=== PATIENT | male | born 1960 | race Caucasian/White ===

== ENCOUNTER → 2016-11-28 06:19 | Day surgery (SDC) | payer BC ==
[~2016-11-28 06:19] MED LIST: Acetaminophen TAB* 325 MG PO PRN; Buffered Lidocaine 1% SYRIN* 3 ML/SYR SYRINGE INTRADERM ONE; Cyclopentolate 1% OPTH.SOL* 2 ML BTL ONE; Flurbiprofen 0.03% OPTH.SOL* 2.5 ML BTL ONE; Lidocaine 1% MPF* 2 ML VIAL ONE; Lidocaine 2% EPI 1:200000 MPF* 20 ML VIAL ONE; Midazolam* 1 MG/ML 2 ML VIAL (2 MG) ONE; Midazolam* 1 MG/ML 5 ML VIAL (5 MG) ONE; Neomycin/Polymy/Dex OPTH.SUSP* MAXITROL 0.1% 5 ML ONE; Phenylephrine 2.5% OPTH.SOL* 2 ML BTL ONE; Povidone Iodine 5% OPTH* 30 ML BTL ONE; Proparacaine 0.5% OPHTH.SOL* 15 ML BTL ONE; acetaZOLAMIDE TAB* 250 MG ONE; fentaNYL* 50 MCG/ML 2 ML VIAL (100 MCG VIAL) ONE
[2016-11-28 08:27] VITALS: BP 121/74
--- NOTE | 2016-11-28 12:16 | OP ---
OPERATIVE NOTE: DATE OF OPERATION: 11/28/16 DATE OF : 60 SURGEON: Saqib Arreaga MD PREOPERATIVE DIAGNOSIS: Cataract, left eye. POSTOPERATIVE DIAGNOSIS: Cataract, left eye. OPERATIVE PROCEDURE: Phacoemulsification, left eye with IOL. PROCEDURE: The patient was brought to the operating room after being given 1/2% Alcaine with epinep hrine drops in the preoperative area. The eye was prepped and draped in the usual sterile fashion. Sterile drape and eyelid speculum were placed. Again, topical 1/2% Alcaine with epinephrine was gi ayaan. A paracentesis incision was made at the 3 o'clock position with the No.75 blade. Clear cornea incision 2.2 x 2.2-mm was created at the 6 o'clock position starting at the anterior limbus using t he 2.2-mm keratome. The anterior chamber was irrigated with 0.4 mL of 1% non-preservative intracame ral lidocaine and filled with DisCoVisc. A capsulorrhexis was completed using the cystotome and the Utrata forceps. Hydrodissection was performed with balanced salt solution. The lens nucleus was re moved with the Phacoemulsification handpiece without incident. Cortex was removed with the irrigati on-aspiration handpiece. The capsular bag was re-inflated using DisCoVisc and an [id number] 14.5 implan t was inserted with the shooter and oriented to the 81-degree meridian. Horizontal reference barry were made with the patient in seated position in the preoperative area. The lens was rotated in ref erence to those. Irrigation-aspiration handpiece was used to remove all residual DisCoVisc. The ey e was refilled with balanced salt solution and the wound checked and found to be watertight. Topica l Maxitrol drops were given. [id number]/[facility] #: [id number]
== END | disposition home or self-care (01) ==
LOC: OREAST 06:19
PROVIDERS: ATTEND Specialist
DX: H25.812 Combined forms of age-related cataract, left eye (principal); I10 Essential (primary) hypertension; R00.2 Palpitations
CPT/HCPCS: J2250; J3010; V2787

== ENCOUNTER 2018-11-09 21:27 | Emergency (ER) | payer BC ==
--- OUTSIDE RECORDS SUMMARY | 2018-11-09 21:34 | XMS REPORT | Continuity of Care Document ---
:1960 External Reference #:[id number] Author Name Jesús Del Castillo M.D. Address [address] [facility] [place] [address] Care Team Providers Name Role Phone Jesús Del Castillo MD Care Team Information Strategic Sourcing Specialist Unavailable Jesús Del Castillo MD Primary Care Physician Unavailable Payers Date Identification Numbers Payment Provider Subscriber Effective: 2011 Policy Number: [id number] [facility] Clarke Soares PayID: [id number] [address] [place] [id number] Advance Directives Description No Information Available Problems Date Description Provider Status Onset: 08/24/2011 Benign essential hypertension Jesús Del Castillo M.D. Active Onset: 08/24/2011 Hyperlipidemia Jesús Del Castillo M.D. Active Onset: 08/24/2011 Benign prostatic hypertrophy Jesús Del Castillo M.D. Active without outflow obstruction Onset: 08/24/2011 Asthma without status asthmaticus Jesús Del Castillo M.D. Active Onset: 11/23/2016 Cataract Jesús Del Castillo M.D. Active Onset: 08/24/2011 Symptom of skin and integumentary Jesús Del Castillo M.D. Inactive tissue Inactive: 11/27/2016 Onset: 05/22/2016 Essential hypertension Jesús Del Castillo M.D. Inactive Inactive: 11/27/2016 Onset: 05/22/2016 Adult health examination Jessú Del Castillo M.D. Inactive Inactive: 11/27/2016 Onset: 04/19/2014 Tinnitus Saqib Gomez M.D. Inactive Inactive: 10/25/2018 Onset: 10/24/2018 Adult health examination Jesús Del Castillo M.D. Inactive Inactive: 10/25/2018 Onset: 10/24/2018 Mixed hyperlipidemia Jesús Del Castillo M.D. Inactive Inactive: 10/25/2018 Family History Date Family Member(s) Observation Comments Father Hypertension Onset: (age 82 Father Aortic valve replaced CABG Years) Onset: (age 38 First Brother Chest Pain had a normal cardiac Years) cath Onset: (age 65 Paternal Grandfather [place] Years) Social History Type Date Description Comments Sex Unknown Marital Status Patient is Occupation Employee [employer] Tobacco Use Start: Unknown Never Smoked Cigarettes ETOH Use Rarely consumes alcohol Tobacco Use Start: Unknown Patient has never smoked Allergies, Adverse Reactions, Alerts Date Description Reaction Status Severity Comments 08/24/2011 NKDA Active 05/22/2010 cantaloupe Active 05/22/2010 Apples Active 05/22/2010 [place]/Yellow Fruits & Veggies Active 04/22/2015 Hay Fever Active Medications Medication Date Status Form Strength Qnty SIG Indications Ordering Provider Losartan 01/04/ Active Tablets 25mg 90tab 1 by mouth Jesús F. Potassium 2018 s every day Artem Del Castillo Proventil HFA 01/05/ Active Aerosol 108(90Bas 1unit 2 puffs every Glenys Kiki 2012 e) s 4 hours as Vines, mcg/Act needed [employer] Metoprolol 09/26/ Active Tablets 100mg 90tab Take 1 Tablet Jesús F. Succinate ER 2011 ER 24HR s By Mouth Two Shallish, Times Daily M.DNina Zocor 05/03/ Active Tablets 20mg 90tab Take 1 Tablet Jesús F. 2007 s By Mouth AT Abundio, Bedtime M.DNina Baby Aspirin 04/01/ Active Chewtabs 81mg 1 PO qd Jesús F. 2007 Artem Del Castillo Vitamin D3 / Active Capsules [id number] OTC 1 po qd Unknown 0000 Tamiflu 10/19/ Hx Capsules 75mg 10cap 1 by mouth Jesús F. 2017 - s twice a day Shallish, 01/02/ M.D. 2018 Lisinopril 09/01/ Hx Tablets 5mg 90tab Take One I10 Jesús FNina 2016 - s Tablet By Abundio, 01/04/ Mouth Once M.D. 2018 Daily Vitamin B12 11/23/ Hx Tablets 1000mcg 1 by mouth Unknown 2017 - ER ocassionally 2018 Note 08/19/ Hx 4unit typhoid oral Jesús F. 2014 - vaccine, 1 po Shallish, 05/22/ qod for 4 M.D. 2016 doses Cipro 08/19/ Hx Tablets 500mg 20tab 1 tab twice a Jesús F. 2014 - s day for 10 Shallish, 05/22/ days M.D. 2016 Azithromycin 07/16/ Hx Tablets 250mg 6tabs 2 tabs by 465.9 Kirill Knight, 2014 - mouth day #1 M.D. 11/30/ then 1 tab by 2014 mouth day#2-5 Lisinopril 05/26/ Hx Tablets 5mg 90tab Take One I10 Jesús F. 2012 - Tablet By Shallriccardo, 11/23/ Mouth Once M.D. 2016 Daily Tobramycin 05/21/ Hx Solution 0.3% 1Bott 1-2 gtts into 373.12 Renate Sulfate 2012 - le left eye q 4 Hipolito, 05/26/ hrs x 5 days Afnp-C 2013 Proventil HFA 01/05/ Hx Aerosol 108(90Bas 1unit 2 puffs q4h Jesús F. 2012 - ) s prn for Shallish, 01/05/ mcg/Act cough/ M.D. 2012 wheezing Proventil HFA 01/05/ Hx Aerosol 108(90Bas 1unit 2 puffs every Jesús F. 2012 - ) mcg/ac s 4 hours as Shallish, 12/25/ needed for M.D. 2014 cough/ wheezing Clarinex 01/12/ Hx Tablets 5mg 30tab 1 po qd Jesús F. 2010 - s Shallish, 01/14/ M.D. 2013 Proventil HFA 01/12/ Hx Aerosol 108(90Bas 1unit 2 puffs q4h Jesús F. 2010 - ) mcg/ac s prn for Shallish, 01/05/ cough/ M.D. 2013 wheezing Amoxicillin 04/13/ Hx Tablets 875mg 20tab 1 tab bid x Av A. 2009 - s 10 days Darlow, 04/23/ M.D. 2010 Physical 06/17/ Hx evaluate and Jesús F. Therapy 2007 - treat neck Shallish, 11/12/ pain ,back M.D. 2009 pain Toprol XL 12/31/ Hx Tablets 50mg 1 PO qd Jesús F. 2008 - ER 24HR Shallish, 11/12/ M.D. 2009 Zocor 07/09/ Hx Tablets 10mg 30tab 2 PO QHS Jesús F. 2006 - s Shallish, M.D. 2008 Toprol XL 04/24/ Hx Tablets 25mg 30tab 1 po qd Jesús F. 2006 - s Shallish, M.D. 2008 Toprol XL 04/24/ Hx Tablets 50mg 180ta 1 PO qd 401.1 Jesús F. 2007 - bs [facility], M.D. 2006 Lotrisone 08/31/ Hx Cream 0.05%;1 % 45gm Apply To Renate 2004 - Affected Area [facility], 09/14/ bid X 4 WKS Afnp-C 2006 Tamiflu 10/11/ Hx 75mg 10uni 1 Tablet Codi 2004 - ts Twice A Day von 02/20/ Lidia, 2004 M.D. Albuterol 01/05/ Hx 1unit 1-2 Puffs Jesús F. Inhaler 2002 - s Q4HRS [facility], M.D. 2005 Josette 05/15/ Hx 180mg 30uni 1 po qd prn Renate 2001 - ts [facility], 04/01/ Afnp-C 2008 Motrin 06/11/ Hx 600mg 40uni 1 PO tid prn Jesús F. 1997 - ts [facility], M.D. 1997 Tylenol #3 06/11/ Hx #3 30uni 1 PO Q4H prn [facility] F. 1997 [facility] Proventil 01/05/ Hx Mdi 1unit 2 puffs q4h [facility]s F. 1997 [facility] cough/ M.D. 2010 wheezing Claritin 01/05/ Hx 10mg 30uni 1 qd Ejs[facility]s F. 1997 [facility] 1998 Toprol XL / Hx Tablets 100mg 135ta 1 1/2po qd Jesús F. 0000 - ER 24HR bs [facility], Artem 2011 Vitamin B-12 / Hx Tablets 1000mcg 1 po qd Unknown 0000 - 2013 Immunizations CPT Code Status Date Vaccine Lot # [id number] Given 05/19/2018 Tdap Tetanus, W Pertussis [id number] Given 05/22/2016 Influenza Vac, Quadrivalent, Slit Virus, Im [id number] Given 06/10/2014 DO Not Use Split Influenza Virus Vaccine [id number] Given 08/08/2013 DO Not Use Split Influenza Virus Vaccine [id number] Given 06/19/2012 DO Not Use Split Influenza Virus Vaccine [id number] Given 08/24/2011 Tdap Tetanus, W Pertussis [id number] 69488 Given 05/22/2010 DO Not Use Split Influenza Virus Vaccine [id number] 94622 Given 12/12/2007 Tetanus And Diptheria Adult Preservative Free [id number] >[id number] Vital Signs Date Vital Result Comment 10/24/2018 8:03am BP Systolic 142 mmHg BP Diastolic 72 mmHg Heart Rate 60 /min Body Temperature 97.7 F Height 71 inches 5'11" Weight 210.00 lb BMI (Body Mass Index) 29.3 kg/m2 01/04/2018 9:33am BP Systolic 120 mmHg BP Diastolic 66 mmHg Heart Rate 60 /min Respiratory Rate 982 /min O2 % BldC Oximetry 16 % Height 71 inches 5'11" Weight 210.50 lb BMI (Body Mass Index) 29.4 kg/m2 08/20/2017 1:05pm BP Systolic 132 mmHg BP Diastolic 82 mmHg Heart Rate 52 /min Body Temperature 97.5 F Height 71 inches 5'11" Weight 205.12 lb BMI (Body Mass Index) 28.6 kg/m2 11/23/2016 5:00pm BP Systolic 122 mmHg BP Diastolic 70 mmHg Heart Rate 54 /min Body Temperature 97.9 F Height 70.5 inches 5'10.50" measured 05/22/16 Weight 205.38 lb BMI (Body Mass Index) 29.0 kg/m2 05/22/2016 7:59am BP Systolic 116 mmHg BP Diastolic 68 mmHg Heart Rate 56 /min Body Temperature 98.1 F Respiratory Rate 16 /min Height 70.5 inches 5'10.50" measured 05/22/16 Weight 205.00 lb BMI (Body Mass Index) 29.0 kg/m2 04/22/2015 1:11pm BP Systolic 132 mmHg BP Diastolic 80 mmHg Heart Rate 54 /min Body Temperature 97.5 F Respiratory Rate 16 /min Height 70.25 inches 5'10.25" Weight 215.12 lb BMI (Body Mass Index) 30.6 kg/m2 11/30/2014 7:21pm BP Systolic 124 mmHg BP Diastolic 72 mmHg Heart Rate 56 /min Body Temperature 98.1 F Respiratory Rate 16 /min Height 70.5 inches 5'10.50" Weight 218.00 lb BMI (Body Mass Index) 30.8 kg/m2 07/16/2014 11:55am BP Systolic 120 mmHg BP Diastolic 70 mmHg Heart Rate 64 /min Body Temperature 97.3 F Respiratory Rate 16 /min Height 70.5 inches 5'10.50" Weight 220.00 lb BMI (Body Mass Index) 31.1 kg/m2 05/06/2014 11:20am BP Systolic 110 mmHg BP Diastolic 68 mmHg Heart Rate 64 /min Body Temperature 97.4 F Respiratory Rate 16 /min Height 70.5 inches 5'10.50" Weight 216.00 lb BMI (Body Mass Index) 30.6 kg/m2 04/19/2014 3:29pm BP Systolic 118 mmHg BP Diastolic 72 mmHg Heart Rate 58 /min Body Temperature 98.6 F Respiratory Rate 16 /min Height 70.5 inches 5'10.50" Weight 216.00 lb BMI (Body Mass Index) 30.6 kg/m2 01/14/2014 8:21am BP Systolic 120 mmHg BP Diastolic 80 mmHg Heart Rate 68 /min Body Temperature 97.2 F Respiratory Rate 15 /min Height 70.5 inches 5'10.50" Weight 216.00 lb BMI (Body Mass Index) 30.6 kg/m2 05/26/2013 2:49pm BP Systolic 142 mmHg BP Diastolic 84 mmHg Heart Rate 60 /min Body Temperature 98.8 F Respiratory Rate 16 /min Height 70.5 inches 5'10.50" Weight 215.00 lb BMI (Body Mass Index) 30.4 kg/m2 05/21/2013 4:23pm BP Systolic 150 mmHg BP Diastolic 88 mmHg Heart Rate 68 /min Body Temperature 98.1 F Height 70.5 inches 5'10.50" Weight 215.00 lb BMI (Body Mass Index) 30.4 kg/m2 04/07/2013 1:32pm BP Systolic 118 mmHg BP Diastolic 78 mmHg Heart Rate 98.8 /min Body Temperature 14.0 F Height 70.5 inches 5'10.50" Weight 214.00 lb BMI (Body Mass Index) 30.3 kg/m2 Right Visual Acuity Distance 20/25 corrected Left Visual Acuity Distance 20/25 corrected 11/05/2012 5:11pm BP Systolic 130 mmHg BP Diastolic 80 mmHg Heart Rate 54 /min Body Temperature 98.4 F Height 70.5 inches 5'10.50" Weight 213.00 lb BMI (Body Mass Index) 30.1 kg/m2 08/24/2011 8:10am BP Systolic 140 mmHg BP Diastolic 64 mmHg Heart Rate 72 /min Body Temperature 98.6 F Respiratory Rate 14 /min Height 70.5 inches 5'10.50" Weight 214.00 lb BMI (Body Mass Index) 30.3 kg/m2 Right Visual Acuity Distance 20/20 corrected Left Visual Acuity Distance 20/20 corrected 05/22/2010 2:39pm BP Systolic 116 mmHg BP Diastolic 80 mmHg Heart Rate 60 /min Body Temperature 97.8 F Respiratory Rate 16 /min Height 70.5 inches 5'10.50" Weight 213.00 lb BMI (Body Mass Index) 30.1 kg/m2 04/14/2010 11:15am BP Systolic 128 mmHg BP Diastolic 82 mmHg Heart Rate 68 /min Body Temperature 97.9 F Weight 214.00 lb 06/27/2009 4:51pm BP Systolic 110 mmHg BP Diastolic 70 mmHg Heart Rate 60 /min Body Temperature 97.9 F Height 70.5 inches 5'10.50" Weight 214.00 lb BMI (Body Mass Index) 30.3 kg/m2 02/21/2009 4:24pm BP Systolic 124 mmHg BP Diastolic 70 mmHg Heart Rate 60 /min Body Temperature 97.3 F Weight 213.00 lb 11/12/2008 4:58pm BP Systolic 154 mmHg BP Diastolic 82 mmHg Heart Rate 68 /min Body Temperature 97.8 F Weight 211.00 lb 06/17/2008 4:48pm BP Systolic 110 mmHg BP Diastolic 80 mmHg Heart Rate 68 /min Height 70.5 inches 5'10.50" Weight 210.00 lb BMI (Body Mass Index) 29.7 kg/m2 04/01/2008 11:24am BP Systolic 122 mmHg BP Diastolic 76 mmHg Heart Rate 68 /min Height 70.5 inches 5'10.50" Weight 209.00 lb BMI (Body Mass Index) 29.6 kg/m2 12/05/2007 5:25pm BP Systolic 134 mmHg BP Diastolic 90 mmHg Heart Rate 68 /min Body Temperature 98.6 F Height 70.5 inches 5'10.50" Weight 213.00 lb BMI (Body Mass Index) 30.1 kg/m2 04/24/2007 11:03am BP Systolic 140 mmHg BP Diastolic 80 mmHg Heart Rate 72 /min Body Temperature 98.5 F Height 70.5 inches 5'10.50" Weight 206.00 lb BMI (Body Mass Index) 29.1 kg/m2 05/24/2006 2:20pm BP Systolic 130 mmHg BP Diastolic 88 mmHg Heart Rate 80 /min Height 70.5 inches 5'10.50" Weight 214.00 lb BMI (Body Mass Index) 30.3 kg/m2 01/11/2006 11:43am BP Systolic 120 mmHg BP Diastolic 74 mmHg Heart Rate 76 /min Height 70.5 inches 5'10.50" Weight 210.00 lb BMI (Body Mass Index) 29.7 kg/m2 08/31/2005 4:02pm BP Systolic 128 mmHg BP Diastolic 82 mmHg Heart Rate 72 /min Height 70.5 inches 5'10.50" Weight 212.00 lb BMI (Body Mass Index) 30.0 kg/m2 02/20/2005 3:16pm BP Systolic 132 mmHg BP Diastolic 90 mmHg Heart Rate 60 /min Height 70.5 inches 5'10.50" Weight 205.00 lb BMI (Body Mass Index) 29.0 kg/m2 10/11/2004 12:37pm BP Systolic 124 mmHg BP Diastolic 78 mmHg Heart Rate 72 /min Body Temperature 98.9 F Height 70.5 inches 5'10.50" 07/09/2003 3:33pm BP Systolic 122 mmHg BP Diastolic 78 mmHg Heart Rate 64 /min Body Temperature 97.1 F Height 70.5 inches 5'10.50" Weight 207.00 lb BMI (Body Mass Index) 29.3 kg/m2 02/23/2002 1:28pm BP Systolic 112 mmHg BP Diastolic 70 mmHg Heart Rate 60 /min 12/20/2000 10:21am BP Systolic 128 mmHg BP Diastolic 76 mmHg Weight 225.00 lb 08/22/2000 3:09pm BP Systolic 138 mmHg BP Diastolic 90 mmHg Weight 230.00 lb 10/21/1998 1:04pm BP Systolic 140 mmHg BP Diastolic 84 mmHg Body Temperature 95.0 F Weight 230.00 lb 06/11/1998 10:38am BP Systolic 132 mmHg LG Cuff BP Diastolic 80 mmHg LG Cuff Weight 232.00 lb 01/05/1998 3:43pm Body Temperature 98.6 F Height 72 inches 6'0" Weight 230.00 lb 06/08/1997 12:00am Body Temperature 98.9 F Weight 226.00 lb Results Test Date Facility Test Result H/L Range Note Ua - Non Micro (Fma) 10/24/2018 [facility] Medicine Appearance CLEAR (607)- - Color YELLOW Glucose, Urine ([facility]/CTX) NEG Bilirubin NEG Ketones TRACE # SP Grav 1.025 Blood NEG PH 5.0 Protein NEG Urobil 0.2 Nitrite NEG Leukocytes ([facility]) NEG Laboratory test 10/24/2018 [facility] C Reactive < 1.00 mg/L N <8.01 1 finding Protein Comprehensive 10/24/2018 Surjit Mee ([facility]) Sodium 137 mEq/L 134-149 Metabolic Prof Potassium 4.7 mEq/L 3.6-5.5 Chloride 101 mEq/L 94-112 Carbon Dioxide 31 mEq/L 21-32 Glucose 111 mg/dL High 70-105 BUN 17 mg/dL 6-26 Creatinine 0.9 mg/dL 0.6-1.4 BUN/Creat Ratio 18.9 CALC 8.0-36.0 Calcium 9.7 mg/dL 8.6-10.2 Total Protein 7.0 g/dL 6.4-8.3 Albumin 4.7 g/dL 3.8-5.5 Globulin 2.3 g/dL 2.0-4.8 A/G Ratio 2.0 CALC 0.6-2.3 Alk. Phosphatase 52 U/L 22-95 Alt (SGPT) 19 U/L 7-35 Ast (Sgot) 23 U/L 5-34 Total Bilirubin 0.6 mg/dL 0.2-1.3 GFR Non- >60 ml/min/1.73m^ >=60 GFR >60 ml/min/1.73m^ >=60 Lipid Profile 10/24/2018 Surjit Mee ([facility]) Cholesterol 171 mg/dL 120- 200 Triglycerides 81 mg/dL 30-200 HDL Cholesterol 57 mg/dL 30-70 LDL (Calculated) 98 CALC 0-129 VLDL Cholesterol 16 mg/dL 0-50 HDL Risk Factor 3.0 CALC 0.0-4.4 CBC Electronic a 10/24/2018 Eddy Flora ([facility]) WBC 4.7 x10^3/UL 4.0- 10.0 RBC 4.55 x10^6/UL 3.93-6.00 HGB 16.4 g/dL 12.0-17.0 HCT 46 % 35-50 MCV 101.1 fL High 80.0-95.0 MCH 36.0 pg High 25.6-32.2 MCHC 35.7 g/dL 32.2-36.0 RDW-CV 12.7 % 11.6-14.4 PLT 187 x10^3/UL 163-400 MPV 9.7 fL 9.4-12.4 Amee# 2.74 x10^3/UL 1.56-6.13 Lymph# 1.34 x10^3/UL 1.18-3.74 Willacy# 0.51 x10^3/UL 0.24-0.82 Eos # 0.1 x10^3/UL 0.0-0.5 Baso # 0.02 x10^3/UL 0.01-0.08 Amee% 58.4 % 34.0-70.0 Lymph % 28.6 % 20.0-52.0 Willacy% 10.9 % 5.0-12.0 Eos% 1.5 % 0.7-7.0 Baso% 0.4 % 0.1-1.2 Laboratory test 10/24/2018 Eddy Flora ([facility]) Free T4 1.23 ng/dL 0.75- 1.54 finding TSH 0.41 mIU/L Low 0.50-6.00 2 PSA 1.5 ng/mL 0.0-4.0 CK 111 U/L 38-174 CBC Electronic ([facility]) 08/20/2017 [facility] WBC 5.5 3.6-9.6 (607)- - RBC 4.35 3.90-5.70 Hemoglobin (Fma/[facility]/CTX) 15.6 g/dL 12.1 - 17.2 Hematocrit (Fma/[facility]/CTX) 45.6 % 36.1 - 50.3 Platelets 168 10^3/ul 150-400 Lymph% 39.8 % 17.0-48.0 Mixed% 4.5 Neutrophils % 55.7 Mean Corpuscular Vol 105 High 82.2-97.4 Mean Corpuscular Hemoglobin 35.9 High 27.6-33.3 Mean Corpuscular Hemo Concen 34.2 32.0-36.0 RDW 14.3 High 11.6-13.7 Mean Platelet Volume 8.3 5.5-11.0 Lipid Profile 08/20/2017 Eddy Mee (a) Cholesterol 171 mg/dL 120- 200 Triglycerides 79 mg/dL 30-200 HDL Cholesterol 67 mg/dL 30-70 LDL (Calculated) 88 CALC 0-129 VLDL Cholesterol 16 mg/dL 0-50 HDL Risk Factor 2.6 CALC 0.0-4.4 Comprehensive Metabolic 08/20/2017 Surjit Mee ([facility]) Sodium 141 mEq/L 134-149 Prof Potassium 3.8 mEq/L 3.6-5.5 Chloride 105 mEq/L 94-112 Carbon Dioxide 26 mEq/L 21-32 Glucose 96 mg/dL 70-105 BUN 16 mg/dL 6-26 Creatinine 1.0 mg/dL 0.6-1.4 BUN/Creat Ratio 16.0 CALC 8.0-36.0 Calcium 10.0 mg/dL 8.6-10.2 Total Protein 7.1 g/dL 6.4-8.3 Albumin 4.9 g/dL 3.8-5.5 Globulin 2.2 g/dL 2.0-4.8 A/G Ratio 2.2 CALC 0.6-2.3 Alk. Phosphatase 41 U/L 22-95 Alt (SGPT) 20 U/L 7-35 Ast (Sgot) 27 U/L 5-34 Total Bilirubin 1.1 mg/dL 0.2-1.3 GFR Non- >60 ml/min/1.73m^ >=60 GFR >60 ml/min/1.73m^ >=60 Ua - Non Micro (Fma) 08/20/2017 [facility] Appearance clear (607)- - Color yellow Glucose, Urine (Fma/[facility]/CTX) neg Bilirubin neg Ketones neg SP Grav <=1.005 Blood neg PH 5.5 Protein neg Urobil 0.2 Nitrite neg Leukocytes ([facility]ma/[facility]) neg Laboratory test finding 08/20/2017 Eddy Mee (a) TSH 0.31 mIU/L Low 0.50-6.00 3 CK 184 U/L High 38-174 PSA 0.9 ng/mL 0.0-4.0 Laboratory test 05/22/2016 [facility] PDF [id number] SEE IMAGE finding [address] [place] [address] (607)- - Metanephrines Frac 05/22/2016 [facility] Normetanephrine, Pl 40 pg/mL 0- 145 Free [address] [place] [address] (607)- - Metanephrine, Pl <10 pg/mL 0-62 4 Ua - Non Micro (Fma) 05/22/2016 [facility] Appearance clear (607)- - Color yellow Glucose, Urine (Fma/[facility]/CTX) neg Bilirubin neg Ketones neg SP Grav 1.020 Blood neg PH 6.0 Protein neg Urobil 0.2 Nitrite neg Leukocytes ([facility]) neg Comprehensive Metabolic 05/22/2016 Eddy Mee (a) Sodium 136 mEq/L 134-149 Prof Potassium 4.8 mEq/L 3.6-5.5 Chloride 98 mEq/L 94-112 Carbon Dioxide 28 mEq/L 21-32 Glucose 114 mg/dL High 70-105 BUN 18 mg/dL 6-26 Creatinine 0.9 mg/dL 0.6-1.4 BUN/Creat Ratio 20.0 CALC 8.0-36.0 Calcium 10.1 mg/dL 8.6-10.2 Total Protein 7.2 g/dL 6.4-8.3 Albumin 4.8 g/dL 3.8-5.5 Globulin 2.4 g/dL 2.0-4.8 A/G Ratio 2.0 CALC 0.6-2.3 Alk. Phosphatase 50 U/L 22-95 Alt (SGPT) 17 U/L 7-35 Ast (Sgot) 25 U/L 5-34 Total Bilirubin 1.2 mg/dL 0.2-1.3 GFR Non- >60 ml/min/1.73m^ >=60 GFR >60 ml/min/1.73m^ >=60 Lipid Profile 05/22/2016 Surjit Caban ([facility]) Cholesterol 170 mg/dL 120- 200 Triglycerides 74 mg/dL 30-200 HDL Cholesterol 69 mg/dL 30-70 LDL (Calculated) 86 CALC 0-129 VLDL Cholesterol 15 mg/dL 0-50 HDL Risk Factor 2.5 CALC 0.0-4.4 Laboratory test 05/22/2016 Surjit Caban ([facility]) Free T4 1.05 ng/dL 0.75- 1.54 5 finding TSH 0.46 mIU/L Low 0.50-6.00 6 CK 110 U/L 38-174 PSA 0.9 ng/mL 0.0-4.0 Complete Blood Count 05/22/2016 Surjit Caban ([facility]) WBC 4.2 x10^3/UL 3.6-9.6 RBC 4.58 x10^6/UL 3.90-5.70 HGB 16.2 g/dL 12.1-17.2 HCT 48 % 36-50 MCV 105.0 fL High 82.2-97.4 MCH 35.4 pg High 27.6-33.3 MCHC 33.6 g/dL 33.0-35.5 RDW 13.8 % High 11.6-13.7 PLT 183 x10^3/UL 150-400 MPV 8.5 fL 7.4-10.4 Gran # 2.5 x10^3/UL 1.5-7.2 Lymph# 1.5 x10^3/UL 0.7-4.9 Willacy# 0.2 x10^3/UL 0.1-0.9 Gran % 58.0 % 42.2-75.2 Lymph % 37.1 % 20.5-51.1 Willacy% 4.9 % 1.7-9.3 Laboratory test finding 05/01/2015 [facility] Lactic Acid 1.5 mmol/L N 0.5-2.2 Urinalysis Profile 05/01/2015 [facility] Urine Color Yellow N Urine Appearance Clear N Urine Specific Griffith 1.011 N 1.010-1.030 Urine pH 5.0 N 5-9 Urine Urobilinogen Negative N Negative Urine Ketones Negative N Negative Urine Protein Negative N Negative Urine Leukocytes Negative N Negative Urine Blood Negative N Negative Urine Nitrite Negative N Negative Urine Bilirubin Negative N Negative Urine Glucose Negative N Negative CBC Auto Diff 05/01/2015 [facility] White Blood Count 5.0 10^3/uL N 4.8-10.8 Red Blood Count 4.13 10^6/uL N 4.0-5.4 Hemoglobin 14.6 g/dL N 14.0-18.0 Hematocrit 44 % N 42-52 Mean Corpuscular Volume 107 fL High 80-94 7 Mean Corpuscular Hemoglobin 36 pg High 27-31 Mean Corpuscular HGB Conc 33 g/dL N 31-36 Red Cell Distribution Width 13 % N 10.5-15 Platelet Count 143 10^3/uL Low 150-450 Mean Platelet Volume 9 um3 N 7.4-10.4 Abs Neutrophils 3.3 10^3/uL N 1.5-7.7 Abs Lymphocytes 1.0 10^3/uL N 1.0-4.8 Abs Monocytes 0.3 10^3/uL N 0-0.8 Abs Eosinophils 0.2 10^3/uL N 0-0.6 Abs Basophils 0.3 10^3/uL High 0-0.2 Abs Nucleated RBC 0.01 10^3/uL N Granulocyte % 64.9 % N 38-83 Lymphocyte % 18.9 % Low 25-47 Monocyte % 6.1 % N 1-9 Eosinophil % 4.7 % N 0-6 Basophil % 5.4 % High 0-2 Nucleated Red Blood Cells % 0.3 N Inr/Protime 05/01/2015 [facility] Inr 0.87 N 0.78-1.07 Laboratory test finding 05/01/2015 [facility] Partial Thrombo 26.6 seconds N 26.0-36.3 Time PTT D Dimer Quantitative < 200 ng/mL N Less Than 230 8 B Type Natriuretic Peptide 34 pg/mL N 9 Comp Metabolic Panel 05/01/2015 [facility] Sodium 136 mmol/L N 133-145 Potassium 3.5 mmol/L N 3.5-5.0 Chloride 104 mmol/L N 101-111 Co2 Carbon Dioxide 26 mmol/L N 22-32 Anion Gap 6 mmol/L N 2-11 Glucose 109 mg/dL High 70-100 Blood Urea Nitrogen 14 mg/dL N 6-24 Creatinine 1.01 mg/dL N 0.67-1.17 BUN/Creatinine Ratio 13.9 N 8-20 Calcium 9.5 mg/dL N 8.6-10.3 Total Protein 6.6 g/dL N 6.4-8.9 Albumin 4.2 g/dL N 3.2-5.2 Globulin 2.4 g/dL N 2-4 Albumin/Globulin Ratio 1.8 N 1-3 Total Bilirubin 0.70 mg/dL N 0.2-1.0 Alkaline Phosphatase 39 U/L N 34-104 Alt 15 U/L N 7-52 Ast 22 U/L N 13-39 Egfr Non- 77.0 N >60 Egfr 99.0 N >60 10 Laboratory test 05/01/2015 [facility] TSH (Thyroid Stim 0.25 ?IU/mL Low 0.34- 5.60 finding Horm) CKMB 05/01/2015 [facility] CKMB ng/mL 2.3 ng/mL N 0.6-6.3 Laboratory test 05/01/2015 [facility] Magnesium 1.6 mg/dL Low 1.9-2.7 finding Lipase 17 U/L N 11.0-82.0 Creatine Kinase 147 U/L N 10-223 C Reactive Protein < 1.00 mg/L N < 5.00 11 Troponin I 0.00 ng/mL N <0.03 12 Comprehensive Metabolic 04/29/2015 Eddy Mee ([facility]) Sodium 137 mEq/L 134-149 Prof Potassium 4.4 mEq/L 3.6-5.5 Chloride 102 mEq/L 94-112 Carbon Dioxide 23 mEq/L 21-32 Glucose 114 mg/dL High 70-105 13 BUN 12 mg/dL 6-26 Creatinine 1.0 mg/dL 0.6-1.4 BUN/Creat Ratio 12.0 CALC 8.0-36.0 Calcium 10.0 mg/dL 8.6-10.2 Total Protein 7.2 g/dL 6.4-8.3 Albumin 4.6 g/dL 3.8-5.5 Globulin 2.6 g/dL 2.0-4.8 A/G Ratio 1.8 CALC 0.6-2.3 Alk. Phosphatase 44 U/L 22-95 Alt (SGPT) 20 U/L 7-35 Ast (Sgot) 29 U/L 5-34 Total Bilirubin 0.8 mg/dL 0.2-1.3 GFR Non- >60 ml/min/1.73m^ >=60 GFR >60 ml/min/1.73m^ >=60 Lipid Profile 04/29/2015 Eddy Flora ([facility]) Cholesterol 183 mg/dL 120- 200 Triglycerides 76 mg/dL 30-200 HDL Cholesterol 61 mg/dL 30-70 LDL (Calculated) 107 CALC 0-129 VLDL Cholesterol 15 mg/dL 0-50 HDL Risk Factor 3.0 CALC 0.0-4.4 Complete Blood Count 04/29/2015 Eddy Flora ([facility]) WBC 4.5 x10^3/UL 3.6-9.6 RBC 4.52 x10^6/UL 3.90-5.70 HGB 16.2 g/dL 12.1-17.2 HCT 48 % 36-50 MCV 106.0 fL High 82.2-97.4 14 MCH 35.9 pg High 27.6-33.3 15 MCHC 33.9 g/dL 33.0-35.5 RDW 13.5 % 11.6-13.7 PLT 192 x10^3/UL 150-400 MPV 8.3 fL 7.4-10.4 Gran # 2.7 x10^3/UL 1.5-7.2 Lymph# 1.6 x10^3/UL 0.7-4.9 Willacy# 0.2 x10^3/UL 0.1-0.9 Gran % 57.1 % 42.2-75.2 Lymph % 37.0 % 20.5-51.1 Willacy% 5.9 % 1.7-9.3 Laboratory test 04/29/2015 Eddy Flora ([facility]) Free T4 1.20 ng/dL 0.75- 1.54 finding TSH 0.32 mIU/L Low 0.50-6.00 16 PSA 1.0 ng/mL 0.0-4.0 CK 147 U/L 38-174 Ua - Non Micro ([facility]ma) 04/22/2015 [facility] Appearance CLEAR (607)- - Color YELLOW Glucose, Urine ([facility]ma/[facility]/CTX) NEG Bilirubin NEG Ketones TRACE SP Grav 1.025 Blood NEG PH 5.0 Protein NEG Urobil 0.2 Nitrite NEG Leukocytes ([facility]ma/[facility]) NEG Ua - Non Micro ([facility]ma) 05/20/2014 [facility] Medicine Appearance clear (607)- - Color yellow Glucose, Urine ([facility]) neg Bilirubin neg Ketones neg SP Grav 1.020 Blood neg PH 7.0 Protein neg Urobil 0.2 Nitrite neg Leukocytes (a/[facility]) neg Comprehensive Metabolic 05/20/2014 Surjit Caban ([facility]) Sodium 136 mEq/L 134-149 Prof Potassium 4.6 mEq/L 3.6-5.5 Chloride 98 mEq/L 94-112 Carbon Dioxide 30 mEq/L 21-32 Glucose 115 mg/dL High 70-105 17 BUN 14 mg/dL 6-26 Creatinine 1.0 mg/dL 0.6-1.4 BUN/Creat Ratio 14.0 CALC 8.0-36.0 Calcium 10.0 mg/dL 8.6-10.2 Total Protein 7.8 g/dL 6.3-8.1 Albumin 4.7 g/dL 3.8-5.5 Globulin 3.1 g/dL 2.0-4.8 A/G Ratio 1.5 CALC 0.6-2.3 Alk. Phosphatase 56 U/L 22-95 Alt (SGPT) 21 U/L 7-35 Ast (Sgot) 26 U/L 5-34 Total Bilirubin 0.8 mg/dL 0.2-1.3 Complete Blood Count 05/20/2014 Eddy Flora ([facility]) WBC 5.3 x10^3/UL 3.6-9.6 RBC 4.66 x10^6/UL 3.90-5.70 HGB 16.6 g/dL 12.1-17.2 HCT 49 % 36-50 MCV 105.0 fL High 82.2-97.4 18 MCH 35.7 pg High 27.6-33.3 19 MCHC 34.1 g/dL 33.0-35.5 RDW 11.8 % 11.6-13.7 PLT 190 x10^3/UL 150-400 MPV 8.1 fL 7.4-10.4 Gran # 3.4 x10^3/UL 1.5-7.2 Lymph# 1.7 x10^3/UL 0.7-4.9 Willacy# 0.2 x10^3/UL 0.1-0.9 Gran % 62.0 % 42.2-75.2 Lymph % 32.7 % 20.5-51.1 Willacy% 5.3 % 1.7-9.3 Lipid Profile 05/20/2014 Eddy Mee (a) Cholesterol 176 mg/dL 120- 200 Triglycerides 169 mg/dL 30-200 HDL Cholesterol 50 mg/dL 30-70 LDL (Calculated) 92 CALC 0-129 VLDL Cholesterol 34 mg/dL 0-50 HDL Risk Factor 3.5 CALC 0.0-4.4 Laboratory test 05/20/2014 Eddy Mee ([facility]) Free T4 1.10 ng/dL 0.75- 1.54 20 finding TSH 0.46 mIU/L Low 0.50-6.00 21 CK 93 U/L 38-174 PSA 0.8 ng/mL 0.0-4.0 Laboratory test finding 02/25/2014 [facility] Blood Urea Nitrogen 15 mg/dL 6- 24 Creatinine 02/25/2014 [facility] Creatinine 0.98 mg/dL 0.67-1.17 Egfr Non- 80.0 >60 Egfr 102.9 >60 22 CBC Electronic (a) 04/14/2013 [facility] WBC 5.3 3.6-9.6 (607)- - RBC 4.65 3.90-5.70 Hemoglobin (Fma/CMC/CTX) 16.5 g/dL 12.1 - 17.2 Hematocrit (Fma/CMC/CTX) 48.4 % 36.1 - 50.3 Platelets 165 10^3/ul 150-400 Lymph% 26.9 20.5-51.1 Mixed% 4.6 Neutrophils % 68.5 Mean Corpuscular Vol 104 High 82.2-97.4 Mean Corpuscular Hemoglobin 35.5 High 27.6-33.3 Mean Corpuscular Hemo Concen 34.0 32.0-36.0 RDW 12.3 11.6-13.7 Mean Platelet Volume 8.5 6.5-11.0 Laboratory test 04/14/2013 Eddy Mee (a) TSH 0.39 mIU/L Low 0.50- 6.00 23 finding PSA 0.70 ng/mL 0.00-4.00 Comprehensive Metabolic 04/14/2013 Eddy Mee ([facility]) Albumin 5.0 g/dL 3.8-5.5 Prof Alk. Phos. 62 U/L 22-95 Alt (SGPT) 19 U/L 10-40 Ast (Sgot) 26 U/L 5-34 BUN 16 mg/dL 6-26 Calcium 9.5 mg/dL 8.6-10.2 Chloride 102 mEq/L 94-112 Creatinine 1.0 mg/dL 0.6-1.4 Carbon Dioxide 27 mEq/L 21-32 Glucose 114 mg/dL High 70-105 Sodium 138 mEq/L 134-149 Total Bilirubin 1.0 mg/dL 0.2-1.3 Total Protein 7.3 g/dL 6.3-8.1 Potassium 4.8 mEq/L 3.6-5.5 Globulin 2.3 g/dL 2.0-4.8 A/G Ratio 2.1 Calc 0.6-2.3 BUN/Creat Ratio 15.5 Calc 8.0-36.0 Laboratory test 04/14/2013 [facility] Vitamin D, 25 37.7 30.0-100.0 24 finding 28 [facility] Oh ng/mL [place] [id number] [phone] Lipid Profile 04/14/2013 Eddy Mee ([facility]) Cholesterol 184 mg/dL 120- 200 HDL 57 mg/dL 30-70 Triglycerides 142 mg/dL 30-200 HDL Risk Factor 3.2 CALC 0.0-4.4 LDL (Calculated) 98 CALC 0-129 VLDL (Calculated) 28 mg/dL 0-50 Ua - Non Micro (Fma) 04/07/2013 [facility] Appearance CLEAR (607)- - Color YELLOW Glucose, Urine (Fma/CMC/CTX) NEG Bilirubin NEG Ketones NEG SP Grav 1.020 Blood NEG PH 6.0 Protein NEG Urobil 0.2 Nitrite NEG Leukocytes ([facility]/CMC/[facility]) NEG Lipid Profile 08/24/2011 Eddy Mee ([facility]) Cholesterol 159 mg/dL 120- 200 HDL 51 mg/dL 30-70 Triglycerides 114 mg/dL 30-200 HDL Risk Factor 3.1 CALC 0.0-4.0 LDL (Calculated) 85 CALC 0-129 VLDL (Calculated) 23 mg/dL 0-50 Ua - Non Micro (Fma) 08/24/2011 [facility] Appearance CLEAR (607)- - Color YELLOW Glucose, Urine (Fma/CMC/CTX) NEG Bilirubin NEG Ketones TRACE SP Grav 1.025 Blood NEG PH 5.0 Protein NEG Urobil 0.2 Nitrite NEG Leukocytes ([facility]/CMC/[facility]) NEG Laboratory test 08/24/2011 [facility] Vitamin D, 30.2 30.0-100.0 [address] 25 Oh ng/[place] [address] [phone] Comprehensive 08/24/2011 Eddy Mee (a) Albumin 4.7 g/dL 3.8-5.5 Metabolic Prof Alk. Phos. 51 U/L 22-95 Alt (SGPT) 26 U/L 10-40 Ast (Sgot) 26 U/L 5-34 BUN 17 mg/dL 6-26 Calcium 9.3 mg/dL 8.6-10.2 Chloride 98 mEq/L 94-112 Creatinine 1.0 mg/dL 0.6-1.4 Carbon Dioxide 30 mEq/L 21-32 Glucose 100 mg/dL 70-105 Sodium 134 mEq/L 134-149 Total Bilirubin 0.5 mg/dL 0.2-1.3 Total Protein 7.1 g/dL 6.3-8.1 Potassium 4.1 mEq/L 3.6-5.5 Globulin 2.3 g/dL 2.0-4.8 A/G Ratio 2.0 Calc 0.6-2.2 BUN/Creat Ratio 16.9 Calc 8.0-36.0 Laboratory test 08/24/2011 Eddy Mee (a) Free T4 1.13 ng/dL 0.75- 1.54 finding TSH 0.47 mIU/L Low 0.50-6.00 26 Creatine Kinase 85 U/L 38-174 PSA 1.00 ng/mL 0.00-4.00 CBC Electronic (a) 08/24/2011 Family [facility] WBC 4.6 3.6-9.6 (607)- - RBC 4.61 3.90-5.70 Hemoglobin (Fma/CMC/CTX) 16.4 g/dL 12.1 - 17.2 Hematocrit (Fma/CMC/CTX) 47.9 % 36.1 - 50.3 Platelets 186 10^3/ul 150-400 Lymph% 24.1 20.5-51.1 Mixed% 6.8 Neutrophils % 69.1 Mean Corpuscular Vol 104 High 82.2-97.4 Mean Corpuscular Hemoglobin 35.5 High 27.6-33.3 Mean Corpuscular Hemo Concen 34.2 32.0-36.0 RDW 12.7 11.6-13.7 Mean Platelet Volume 8.1 6.5-11.0 Surgical 10/05/2010 [facility] Surgical <SEE 27 Pathology Pathology NOTE> Laboratory test 07/05/2010 Surjit Caban ([facility]) TSH 0.51 mIU/L 0.50- finding 6.00 Creatine Kinase 174 U/L 38-174 PSA 1.10 ng/mL 0.00-4.00 B12 810 pg/mL 230-1050 Folate 19.91 ng/mL High 3.00-16.00 CBC ([facility]) 07/05/2010 Family [facility] WBC 5.4 3.6-9.6 (607)- - RBC 4.63 3.90-5.70 Hemoglobin (a/CMC/CTX) 16.4 g/dL 12.1 - 17.2 Hematocrit (a/CMC/CTX) 47.8 % 36.1 - 50.3 Platelets 172 10^3/ul 150-400 Lymph% 27.5 20.5-51.1 Mixed% 8.3 Neutrophils % 64.2 Mean Corpuscular Vol 103 High 82.2-97.4 Mean Corpuscular Hemoglobin 35.4 High 27.6-33.3 Mean Corpuscular Hemo Concen 34.3 33.0-36.0 RDW 12.7 11.6-13.7 Mean Platelet Volume 8.1 7.4-10.4 Laboratory 07/05/2010 [facility] Vitamin D, 25 23.6 Low 32.0-100.0 [address] [facility] [address] Oh ng/mL [place] [phone] Lipid Profile 07/05/2010 Surjit Caban (a) Cholesterol 175 mg/dL 120- 200 HDL 56 mg/dL 30-70 Triglycerides 105 mg/dL 30-200 HDL Risk Factor 3.1 CALC Low 4.2-7.0 LDL (Calculated) 98 CALC 0-129 VLDL (Calculated) 21 mg/dL 0-50 Comprehensive Metabolic 07/05/2010 Surjit Caban ([facility]) Albumin 4.6 g/dL 3.8-5.5 Prof Alk. Phos. 57 U/L 22-95 Alt (SGPT) 22 U/L 10-40 Ast (Sgot) 26 U/L 5-34 BUN 17 mg/dL 6-26 Calcium 9.5 mg/dL 8.6-10.2 Chloride 100 mEq/L 94-112 Creatinine 1.1 mg/dL 0.6-1.4 Carbon Dioxide 29 mEq/L 21-32 Glucose 103 mg/dL 70-105 Sodium 142 mEq/L 134-149 Total Bilirubin 0.8 mg/dL 0.2-1.3 Total Protein 7.6 g/dL 6.3-8.1 Potassium 4.5 mEq/L 3.6-5.5 Globulin 3.1 g/dL 2.0-4.8 A/G Ratio 1.5 Calc 0.6-2.2 BUN/Creat Ratio 15.4 Calc 8.0-36.0 Ua - Non Micro (Fma) 05/22/2010 Family [facility] Appearance clear (607)- - Color yellow Glucose, Urine (a/[facility]/CTX) neg Bilirubin neg Ketones trace # SP Grav 1.025 Blood neg PH 5.0 Protein neg Urobil 0.2 Nitrite neg Leukocytes ([facility]) neg Throat-Beta Strept 04/11/2010 [facility] Throat-Beta Strep Culture NF 29 Urinalysis 11/13/2009 [facility] Ua Color YELLOW Yellow Appearance-Urine CLEAR Clear Specific Griffith-Ur 1.020 1.010-1.030 Esterase-Urine NEGATIVE Negative Nitrite NEGATIVE Negative [id number] NEGATIVE Negative Protein-Urine NEGATIVE Negative PH-Urine 6.0 5-9 Blood-Urine NEGATIVE Negative Ketones-Urine NEGATIVE Negative Bilirubin-Ur NEGATIVE Negative Glucose-Urine NEGATIVE Negative CBC With Manual Diff 11/13/2009 [facility] White Blood Count 8.1 CUMM 4.8-10.8 Red Cell Count 4.45 CUMM Low 4.6-6.2 Hemoglobin 16.2 g/dL 14.0-18.0 Hematocrit 46 % 42-52 Mean Corpuscular Volume 104 um3 High 80-94 Mean Corpuscular Hemoglob 36 pg High 27-31 Mean Corpuscular HGB Cone 35 g/dL 32-36 Redcell Distribution WDTH 13 % 10.5-15 Platelet Count 156 CUMM 150-450 Mean Platelet Volume 8.6 um3 7.4-10.4 Polysegmented Neutrophil 65 % 38-83 Lymphocyte 26 % 25-47 Monocyte 6 % 0-13 Eosenophil 1 % 0-6 Atypical Lymph 2 % 0-6 Absolute Neutrophil Count 5.2 Anisocytosis SLIGHT Comp Stat 11/13/2009 [facility] Sodium 140 mmol/L 135-145 Potassium 3.8 mmol/L 3.5-5.0 Chloride 104 mmol/L 101-111 Co2 (Carbon Dioxide) 32.0 mmol/L 22-32 Anion Gap 4.0 mmol/L 2-11 30 Glucose 108 mg/dL High 70-100 31 BUN 11 mg/dL 6-24 Creatinine 1.00 mg/dL 0.50-1.40 One Over Creatinine 1.00 BUN/Creatinine Ratio 11.0 8-20 Calcium 9.6 mg/dL 8.1-9.9 32 Total Protein 6.5 GM/DL 6.2-8.1 Albumin 4.2 GM/DL 3.6-5.4 Globulin 2.3 GM/DL 2-4 Albumin/Globulin Ratio 1.8 1-3 Bilirubin Total 0.8 mg/dL 0.4-1.5 33 Alkaline Phosphatase 58 U/L 39-117 Alt (SGPT) 21 U/L 17-63 Ast (Sgot) 25 U/L 12-42 eGFR Non- 84.4 > 60 eGFR 102.1 > 60 34 Amylase Stat 11/13/2009 [facility] Amylase 76 U/L 30-125 Laboratory test 11/13/2009 [facility] Lipase 27 U/L 22-51 finding Ict Hemoccult ([facility]) 07/26/2009 [facility] Medicine Ict Hemoccult (1) 07/12/09 (607)- - NEG Ict Hemoccult-(2) SEE ORDER NOTES Ict-Hemoccult (3) N/A Complete Blood Count 06/27/2009 Surjit Caban ([facility]) WBC 5.6 x10^3/uL 3.6-9.6 Gran# 3.2 x10^3/uL 1.5-7.2 Gran% 57.0 % 42.2-75.2 HCT 45 % 36-50 HGB 15.6 g/dL 12.1-17.2 Lymph# 2.1 x10^3/uL 0.7-4.9 Lymph% 37.1 % 20.5-51.1 MCH 36.1 pg High 27.6-33.3 MCV 104.4 fL High 82.2-97.4 MCHC 34.5 g/dL 33.0-35.5 Mo# 0.3 x10^3/uL 0.1-0.9 Mo% 5.9 % 1.7-9.3 MPV 8.0 fL 7.4-10.4 PLT 156 x10^3/uL 150-400 RBC 4.34 x10^6/uL 3.90-5.70 RDW 12.8 % 11.6-13.7 Laboratory test 06/27/2009 Surjit Caban ([facility]) Free T4 1.28 ng/dL 0.75- 1.54 finding Iron 181 g/dL High 60-150 35 Laboratory test finding 06/27/2009 Surjit Caban ([facility]) Ferritin 204 ng/mL 22-415 Comprehensive Metabolic 12/10/2008 Surjit Caban ([facility]) Albumin 4.8 g/dL 3.8-5.5 36 Prof Alk. Phos. 54 U/L 22-95 Alt (SGPT) 25 U/L 10-40 Ast (Sgot) 33 U/L 5-34 BUN 15 mg/dL 6-26 Calcium 9.6 mg/dL 8.6-10.2 Chloride 100 mEq/L 94-112 Creatinine 1.1 mg/dL 0.6-1.4 Carbon Dioxide 29 mEq/L 21-32 Glucose 112 mg/dL High 70-105 Sodium 140 mEq/L 134-149 Total Bilirubin 0.9 mg/dL 0.2-1.3 Total Protein 7.3 g/dL 6.3-8.1 Potassium 4.9 mEq/L 3.6-5.5 Globulin 2.6 g/dL 2.0-4.8 A/G Ratio 1.9 Calc 0.6-2.2 BUN/Creat Ratio 13.3 Calc 8.0-36.0 Lipid Profile 12/10/2008 Surjit Caban (a) Cholesterol 161 mg/dL 120- 200 HDL 57 mg/dL 30-70 Triglycerides 88 mg/dL 30-200 HDL Risk Factor 2.8 CALC Low 4.2-7.0 LDL (Calculated) 87 CALC 0-129 VLDL (Calculated) 18 mg/dL 0-50 Laboratory test 12/10/2008 Eddy Mee ([facility]) TSH 0.41 mIU/L Low 0.50- 6.00 37 finding PSA 0.60 ng/mL 0.00-4.00 CBC With Electronic Diff 09/15/2008 [facility] White Blood Count 4.8 CUMM 4.8- 10.8 Red Cell Count 4.53 CUMM Low 4.6-6.2 Hemoglobin 16.0 g/dL 14.0-18.0 Hematocrit 45 % 42-52 Mean Corpuscular Volume 99 um3 High 80-94 Mean Corpuscular Hemoglob 35 pg High 27-31 Mean Corpuscular HGB Cone 36 g/dL 32-36 Redcell Distribution WDTH 13 % 10.5-15 Platelet Count 189 CUMM 150-450 Mean Platelet Volume 8.8 um3 7.4-10.4 Gran % 60.9 % 38-83 Lymph % 29.1 % 25-47 Mononuclear % 7.9 % 1-9 Eosinophil % 1.8 % 0-6 Basophil % 0.3 % 0-2 Abs Lymphs 1.4 1.0-4.8 Abs Mononuclear 0.4 0-0.8 Absolute Neutrophil Count 2.9 1.5-7.7 Abs Eosinophils 0.1 0-0.6 Abs Basophils 0 0-0.2 38 Basic Metabolic Panel 09/15/2008 [facility] Sodium 137 mmol/L 135-145 Potassium 4.3 mmol/L 3.5-5.0 Chloride 102 mmol/L 101-111 Co2 (Carbon Dioxide) 30.0 mmol/L 22-32 Anion Gap 5.0 mmol/L 2-11 39 Glucose 109 mg/dL High 70-100 40 BUN 11 mg/dL 6-24 Creatinine 1.10 mg/dL 0.50-1.40 One Over Creatinine 0.90 BUN/Creatinine Ratio 10.0 8-20 Calcium 9.4 mg/dL 8.1-9.9 41 Protime 09/15/2008 [facility] Protime 11.1 10.9-13.3 Inr 0.84 42 Laboratory test 09/15/2008 [facility] PTT (Aptt) 22.4 20.1-28.2 43 finding Comprehensive 12/12/2007 Eddy Mee ([facility]) Albumin 4.5 g/dL 3.8-5.5 Metabolic Prof Alk. Phos. 56 U/L 22-95 Alt (SGPT) 17 U/L 10-40 Ast (Sgot) 22 U/L 5-34 BUN 16 mg/dL 6-26 Calcium 10.1 mg/dL 8.6-10.2 Chloride 100 mEq/L 94-112 Creatinine 1.3 mg/dL 0.6-1.4 Carbon Dioxide 29 mEq/L 21-32 Glucose 108 mg/dL High 70-105 Sodium 140 mEq/L 134-149 Total Bilirubin 1.1 mg/dL 0.2-1.3 Total Protein 7.4 g/dL 6.3-8.1 Potassium 4.2 mEq/L 3.6-5.5 Globulin 2.9 g/dL 2.0-4.8 A/G Ratio 1.6 Calc 0.6-2.2 BUN/Creat Ratio 13.0 Calc 8.0-36.0 Lipid Profile 12/12/2007 Surjit Caban ([facility]) Cholesterol 167 mg/dL 120- 200 HDL 60 mg/dL 30-70 Triglycerides 85 mg/dL 30-200 HDL Risk Factor 2.8 CALC Low 4.2-7.0 LDL (Calculated) 89 CALC 0-129 VLDL (Calculated) 17 mg/dL 0-50 Complete Blood Count 12/12/2007 Surjit Caban ([facility]) WBC 5.1 x10^3/u 3.6 -9.6 Gran# 3.1 x10^3/u 1.5-7.2 Gran% 61.3 % 42.2-75.2 HCT 49 % 36-50 HGB 16.8 g/dL 12.1-17.2 Lymph# 1.7 x10^3/u 0.7-4.9 Lymph% 33.8 % 20.5-51.1 MCH 36.6 pg High 27.6-33.3 MCV 106.4 fL High 82.2-97.4 MCHC 34.4 g/dL 33.0-35.5 Mo# 0.2 x10^3/u 0.1-0.9 Mo% 4.9 % 1.7-9.3 MPV 8.5 fL 7.4-10.4 PLT 197 x10^3/u 150-400 RBC 4.58 x10^6/u 3.90-5.70 RDW 12.5 % 11.6-13.7 Laboratory test 12/12/2007 Eddy Mee ([facility]) TSH 0.35 mIU/L Low 0.50- 6.00 44 finding PSA 0.60 ng/mL 0.00-4.00 Ua - Non Micro (a) 12/12/2007 [facility] Medicine Appearance CLEAR (607)- - Color YELLOW Glucose, Urine (a/[facility]/CTX) NEG Bilirubin NEG Ketones TRACE SP Grav 1.025 Blood NEG PH 6.0 Protein NEG Urobil 0.2 Nitrite NEG Leukocytes ([facility]) NEG Laboratory test finding 06/25/2007 [facility] CPK (Creatine Kinase) 281 U/L High 0-200 LDL Direct 124 mg/dL High Less Than 100 45 Liver Function Panel 06/25/2007 [facility] Albumin/Globulin Ratio 1.8 1-3 Albumin 4.4 GM/DL 3.6-5.4 Alkaline Phosphatase 52 U/L 39-117 Alt (SGPT) 18 U/L 17-63 Ast (Sgot) 25 U/L 12-42 Bilirubin Direct 0.1 mg/dL 0.1-0.5 Globulin 2.4 GM/DL 2-4 Indirect Bilirubin 0.6 mg/dL 0.1-0.75 Total Protein 6.8 GM/DL 6.2-8.1 Lipid Profile 06/25/2007 [facility] Cholesterol/HDL Ratio 4.18 AVERAGE 1-4.97 (Trig/Chol/HDL) Cholesterol 213 mg/dL High Less Than 200 46 Triglyceride 116 mg/dL 40-200 High Density Lipoprotein 51 mg/dL 40-60 Low Density Lipoprotein 139 mg/dL High Less Than 100 47 Laboratory test 06/25/2007 [facility] Bilirubin Total 0.7 mg/dL 0.4-1.5 finding Laboratory test 01/11/2006 [facility] TSH 0.34 RESULTS Low 0.5-6.0 finding (607)- - ([facility] GEOVANNI'D uIU/ml x) Free T4 ([facility]) 1.34 ng/dL 0.75-1.54 Laboratory test 10/11/2004 [facility] Flu A&B TEST INVALID Negative finding (607)- - Laboratory test 11/04/2002 Hospital ([facility]) Comments BASIC,LIPID;UA finding Comp Metabolic 08/27/2000 [facility] Albumin 4.2 3.8-5.5 ([facility]) (607)- - Alkaline Phosphatase 71 U/L 39-130 Bilirubin, Total 0.7 mg/dL 0.2-1.3 BUN 10 7-26 Calcium 8.1 mg/dL 7.4-9.2 Creatinine 0.7 mg/dL 0.6-1.4 Glucose 95 mg/dL 70 - 118 Ast Sgot 20 U/L 9-44 Alt (SGPT) 15 10-40 Total Protein 6.8 g/dL 6.4-8.3 Sodium 135 134-149 Potassium 4.6 3.6-5.5 Chloride 98 mEq/L 94-112 Co2 28 21-32 Globulin 2.6 2.0-4.8 Albumin / Globulin Ratio 1.6 0.6-2.2 BUN/Creatinin Ratio 14.3 8.0-36 Lipid Profile ([facility]) 08/27/2000 [facility] Cholesterol 163 mg/dL 140 -200 (607)- - Triglyceride 146 mg/dL 30-150 VLDL 29 0-50 LDL-Calculated 89 0-160 HDL-Chol 45 35-85 Laboratory test finding 08/27/2000 [facility] Free T4 13.95 pg/mL 7.0-15.5 (607)- - TSH 0.09 AL 0.4-4.2 CBC With Diff ([facility]) 08/27/2000 [facility] WBC 5.5 3.6-9.6 (607)- - Lymphocytes 31.8 % 20.5 - 51.1 Monocytes 5.0 % 1.7 - 9.3 Granulocytes 63.2 % 42.2 - 75.2 Lymphocytes 1.7 10^3/uL 0.7 - 4.9 Monocytes 0.3 10^3/uL 0.1 - 0.9 Granulocytes 3.5 10^3/uL 1.5 - 7.2 RBC 4.98 3.90-5.70 Hemoglobin 17.4 g/dL High 12.1 - 17.2 Hematocrit 50.0 % 36.1 - 50.3 Mean Corpuscular Vol 100.4 High 82.2-97.4 Mean Corpuscular Hemaglobin 34.8 High 27.6-33.3 Mean Corpuscular Hemo Concen 34.7 33.0-34.8 RDW 12.7 11.6-13.7 Platelets 206 10^3/ul 150-400 Mean Platelet Volume 9.0 7.4-10.4 Comp Metabolic (a) 08/22/2000 [facility] Albumin 4.7 3.8-5.5 (607)- - Alkaline Phosphatase 72 U/L 39-130 Bilirubin, Total 0.9 mg/dL 0.2-1.3 BUN 12 10-26 Calcium 9.6 mg/dL RH 7.4-9.2 Creatinine 0.8 mg/dL 0.6-1.4 Glucose 103 mg/dL 70 - 118 Ast Sgot 23 U/L 9-44 Alt (SGPT) 22 10-40 Total Protein 7.5 g/dL 6.3-8.1 Sodium 142 134-149 Potassium 4.5 3.6-5.5 Chloride 102 mEq/L 94-112 Co2 29 21-32 Globulin 2.8 2.0-4.8 Albumin / Globulin Ratio 1.7 0.6-2.2 BUN/Creatinin Ratio 15.0 8.0-36 Lipid Profile ([facility]) 08/22/2000 [facility] Cholesterol 186 mg/dL 140 -200 (607)- - Triglyceride 108 mg/dL 30-150 VLDL 22 0-50 LDL-Calculated 112 0-160 HDL-Chol 52 35-85 CBC With Diff ([facility]) 08/22/2000 [facility] WBC 6.0 3.6-9.6 (607)- - Lymphocytes 24.7 % 20.5 - 51.1 Monocytes 2.2 % 1.7 - 9.3 Granulocytes 73.1 % 42.2 - 75.2 Lymphocytes 1.5 10^3/uL 0.7 - 4.9 Monocytes 0.1 10^3/uL 0.1 - 0.9 Granulocytes 4.4 10^3/uL 1.5 - 7.2 RBC 4.76 3.90-5.70 Hemoglobin 16.5 g/dL 12.1 - 17.2 Hematocrit 48.2 % 36.1 - 50.3 Mean Corpuscular Vol 101.2 High 82.2-97.4 Mean Corpuscular Hemaglobin 34.7 High 27.6-33.3 Mean Corpuscular Hemo Concen 34.3 33.0-34.8 RDW 12.8 11.6-13.7 Platelets 184 10^3/ul 150-400 Mean Platelet Volume 9.4 7.4-10.4 1 SERUM [id number] RESULTS VERIFIED BY REPEAT ANALYSIS 3 RESULTS VERIFIED BY REPEAT ANALYSIS 4 Concentrations of Normetanephrine between 146 and 487 pg/mL, and Metanephrine between 63 and 255 pg/mL are considered indeterminate. Follow-up biochemical testing is recommended when patient levels fall within this indeterminate range. These tests include repeat testing of plasma/urinary fractionated metanephrines and plasma catecholamines. 5 FASTING 6 RESULTS VERIFIED BY REPEAT ANALYSIS 7 Adult MCV greater than 105 fl incubated 1/2 hr at 37c without significant change. 8 Please note: The following may produce a false positive D Dimer test: - Rheumatoid factor greater than 60 IU/ml - Plasma hemoglobin greater than 0.05 gm/dl - Bilirubin greater than 50 mg/dl - Lipids greater than 1000 mg/dl - FDP greater than 20 ug/ml 9 >100 to <200 pg/mL: likely compensated congestive heart failure (CHF) 200 to 400 pg/mL: likely moderate CHF >400 pg/mL: likely moderate to severe CHF 10 Because ethnic data is not always readily available, this report includes an eGFR for both -Americans and non- Americans. The National Kidney Disease Education Program (NKDEP) does not endorse the use of the MDRD equation for patients that are not between the ages of 18 and 70, are , have extremes of body size, muscle mass, or nutritional status, or are non- or non-. According to the National Kidney Foundation, irrespective of diagnosis, the stage of the disease is based on the level of kidney function: Stage Description GFR(mL/min/1.73 m(2)) 1 Kidney damage with normal or decreased GFR 90 2 Kidney damage with mild decrease in GFR 60-89 3 Moderate decrease in GFR 30-59 4 Severe decrease in GFR 15-29 5 Kidney failure <15 (or dialysis) 11 Acute inflammation: >10.00 12 Reference Range and Interpretation: TnI (ng/mL) Interpretation Less Than 0.03 ng/mL Not supportive of diagnosis of ND 0.03 - 0.50 ng/mL Indeterminate: suggest serial studies if clinically indicated. Greater than 0.5 ng/mL Consistent with diagnosis of ND 13 consistent w/ previous results 14 consistent w/ previous results 15 consistent w/ previous results 16 RESULTS VERIFIED BY REPEAT ANALYSIS 17 RESULTS VERIFIED BY REPEAT ANALYSIS 18 RESULTS VERIFIED BY REPEAT ANALYSIS 19 RESULTS VERIFIED BY REPEAT ANALYSIS 20 FASTING 21 RESULTS VERIFIED BY REPEAT ANALYSIS 22 Because ethnic data is not always readily available, this report includes an eGFR for both -Americans and non- Americans. The National Kidney Disease Education Program (NKDEP) does not endorse the use of the MDRD equation for patients that are not between the ages of 18 and 70, are , have extremes of body size, muscle mass, or nutritional status, or are non- or non-. According to the National Kidney Foundation, irrespective of diagnosis, the stage of the disease is based on the level of kidney function: Stage Description GFR(mL/min/1.73 m(2)) 1 Kidney damage with normal or decreased GFR 90 2 Kidney damage with mild decrease in GFR 60-89 3 Moderate decrease in GFR 30-59 4 Severe decrease in GFR 15-29 5 Kidney failure <15 (or dialysis) 23 RESULT GEOVANNI'D 24 Vitamin D deficiency has been defined by the [place] [employer] and an Endocrine Society practice guideline as a level of serum 25-OH vitamin D less than 20 ng/mL (1,2). The Endocrine Society went on to further define vitamin D insufficiency as a level between 21 and 29 ng/mL (2). 1. IOM ([place] [employer]). 2010. Dietary reference intakes for calcium and D. [place]: The National Academies Press. 2. Bhavna REGALADO, Chandni MIRANDA, Melissa KEVIN, et al. Evaluation, treatment, and prevention of vitamin D deficiency: an Endocrine Society clinical practice guideline. JCEM. 2010; 96(7):1911-30. 25 Vitamin D deficiency has been defined by the [place] [employer] and an Endocrine Society practice guideline as a level of serum 25-OH vitamin D less than 20 ng/mL (1,2). The Endocrine Society went on to further define vitamin D insufficiency as a level between 21 and 29 ng/mL (2). 1. IOM ([place] [employer]). 2011. Dietary reference intakes for calcium and D. [place]: The National Academies Press. 2. Bhavna REGALADO, Chandni MIRANDA, Melissa KEVIN, et al. Evaluation, treatment, and prevention of vitamin D deficiency: an Endocrine Society clinical practice guideline. JCEM. 2010; 96(7):1911-30. 26 result geovanni'd 27 ---- RUN DATE: 10/09/10 [facility] NMI LIVE PAGE 1 RUN TIME: 1259 Specimen Inquiry RUN USER: INTERFACE -- Name: CLARKE SOARES Status: REG REF Re10/05/10 Age/Sex: 50/M Unit#: [id number] Location: [address] [place] [address]. : 60 -- Specimen: [id number] SOUT Spec Date: 10/05/[address]: Dimitri padilla MD Spec Type: SURGICAL P Received: 10/06/10-9014 Copies to: Jesús Del Castillo MD SPECIMEN BIOPSY POLYP AT 50 CM. HISTORY POST-OP DIAGNOSIS: Colonoscopy to terminal ileum. Good preparation. Small sigmoid colon polyp removed. CLINICAL INFORMATION: Screening colonoscopy. GROSS DESCRIPTION The specimen is received in formalin labelled Clarke Soares, Polyp at 50 cm., and consists of a mendoza, soft tissue fragment measuring 0.5 x 0.3 x 0.1 cm. Submitted entirely, one cassette. DIAGNOSIS Colon at 50 cm., biopsy: Hyperplastic polyp. Signed Electronically by: THANH KERR 10/09/10 1259 -- -- DEPARTMENT OF PATHOLOGY, [address] [place] [address] [facility] Permit #[id number] Humberto Seals M.D. Director Thanh Kerr M.D. Safety Lead Dir luci -- 28 Recent studies consider the lower limit of 32.0 ng/mL to be a threshold for optimal health. Michael VENCES. J Nutr. 2005 Oct;135(2):317-22. 29 NEGATIVE FOR GROUP A BETA STREPTOCOCCUS 30 Anion gap measurement may be of limited value in the presence of any alkalosis, especially in a combined acid base disorder. . 31 Note change in reference range as of 04/22/08. The change was based on recommendations from the [place] [employer]. 32 Please note change in reference range effective 08 . 33 A metabolite of Naproxen, O-desmethylnaproxen, has been shown to interfere with the Jendrassik-Belen method for measuring total bilirubin. Samples from patients who have taken Naproxen have shown spurious elevation in total bilirubin levels. 34 Because ethnic data is not always readily available, this report includes an eGFR for both -Americans and non- Americans. The National Kidney Disease Education Program (NKDEP) does not endorse the use of the MDRD equation for patients that are not between the ages of 18 and 70, are , have extremes of body size, muscle mass, or nutritional status, or are non- or non-. According to the National Kidney Foundation, irrespective of diagnosis, the stage of the disease is based on the level of kidney function: Stage Description GFR(mL/min/1.73 m(2)) 1 Kidney damage with normal or decreased GFR 90 2 Kidney damage with mild decrease in GFR 60-89 3 Moderate decrease in GFR 30-59 4 Severe decrease in GFR 15-29 5 Kidney failure <15 (or dialysis) 35 result reckd' 36 FASTING 37 RESULT RECHECKED 38 H H Check Failed 39 Anion gap measurement may be of limited value in the presence of any alkalosis, especially in a combined acid base disorder. . 40 Note change in reference range as of 04/22/08. The change was based on recommendations from the [place] [employer]. 41 Please note change in reference range effective 08 . 42 ROSS VALUE=2.01 ( OF 08/08/07 Recommended INR for Patients on Oral Anticoagulants Prophylaxis 2.0 - 3.0 Treatment of thrombosis 2.0 - 3.0 Prevention of embolism 2.0 - 3.0 Prevention of embolism from prosthetic heart valves 2.5 - 3.5 43 PLEASE NOTE NEW REFERENCE RANGE EFFECTIVE 08. 44 RESULT GEOVANNI 45 Classification: Near or above optimal . 46 Classification: Borderline High . 47 CALCULATED LDL APPROXIMATES THE VALUE OF A DIRECT LDL MEASUREMENT. Classification: Borderline High . Procedures Date Code Description Status 10/24/2018 56484 Electrocardiogram Complete Completed 08/20/2017 43618 Electrocardiogram Complete Completed 05/22/2016 43057 Electrocardiogram Complete Completed 04/22/2015 27661 Electrocardiogram Complete Completed 05/06/2014 41870 Electrocardiogram Complete Completed 01/14/2014 80292 Electrocardiogram Complete Completed 04/07/2013 16454 Vision Test- screening test of visual acuity, Completed quantitative, bila 04/07/2013 88475 Electrocardiogram Complete Completed 11/05/2012 73936 Pure Tone Audiometry Completed 08/24/2011 37508 Vision Test- screening test of visual acuity, Completed quantitative, bila 08/24/2011 48707 Electrocardiogram Complete Completed 10/05/2010 32327492 Colonoscopy Completed 05/22/2010 32655 Electrocardiogram Complete Completed 05/22/2010 11402 Electrocardiogram Complete Completed 06/17/2008 88019 Electrocardiogram Complete Completed 12/05/2007 84493 Electrocardiogram Complete Completed 04/24/2007 78182 Electrocardiogram Complete Completed 05/24/2006 55023 Electrocardiogram Complete Completed 07/09/2003 26118 Electrocardiogram Complete Completed 02/23/2002 21627 Electrocardiogram Complete Completed 08/22/2000 64742 Electrocardiogram Complete Completed 01/05/1998 27834 Electrocardiogram Complete Completed Encounters Type Date Location Provider Dx Diagnosis Office Visit 01/04/2018 Main Office Conner Morales Essential ( primary) 9:40a M.DNina hypertension E78.4 Other hyperlipidemia Office Visit 08/20/2017 1:00p Main Office Conner Morales Essential (primary) Artem hypertension E78.4 Other hyperlipidemia N40.0 Benign prostatic hyperplasia without lower urinry tract symp R23.8 Other skin changes J45.998 Other asthma Z00.00 Encntr for general adult medical exam w/o abnormal findings Z79.82 manager terminal (current) use of aspirin Office Visit 11/23/2016 3:40p [facility] Office Jesús Prieto Essential ( primary) Artem Del Castillo hypertension H26.9 Unspecified cataract Z01.818 Encounter for other preprocedural examination Office Visit 05/22/2016 8:00a Main Office Conner Morales Essential (primary) MNinaDNina hypertension E78.4 Other hyperlipidemia N40.0 Enlarged prostate without lower urinary tract symptoms Z00.00 Encntr for general adult medical exam w/o abnormal findings Z23 Encounter for immunization Office Visit 04/22/2015 1:00p [facility] Office Jesús F. 401.1 Ophelia Del Castillo M.D. Benign 600.00 hypertrophy benign of prostate without urinary obstruction 388.30 Tinnitus Unspecified 493.90 Asthma Unspec W/O Status Asthmaticus V70.0 Examination General Medical Routine AT Health Care Facility Office Visit 11/30/2014 7:15p Main Office Renate Mcmillan, 724.5 Backache Unspec Afnp-C Office Visit 07/16/2014 11:40a [facility] Kirill Knight M.D. 465.9 URI Upper Respiratory Infections Acute Unspec Sites Office Visit 05/06/2014 10:20a Main Office Jesús Joseph.1 Hypertension Artem Del Castillo Benign 272.4 Hyperlipidemia Other Unspec 388.30 Tinnitus Unspecified 600.00 hypertrophy benign of prostate without urinary obstruction 782.9 Skin & Integumentary Tissue Other Symptoms 784.92 Jaw Pain V70.0 Examination General Medical Routine AT Health Care Facility V58.66 Long-Term Use Of Aspirin Office Visit 04/19/2014 3:00p Main Office Saqib Finch 388.30 Tinnitus Artem Gomez Unspecified Office Visit 01/14/2014 8:30a Main Office Jesús Joseph.1 Hypertension Saulo Del Castillo M.D. 784.7 Epistaxis 786.05 Shortness Of Breath Office Visit 05/26/2013 2:45p Main Office Renate Mcmillan 401.1 Hypertension Benign Afnp-C Office Visit 05/21/2013 4:15p Main Office Renate Mcmillan 401.1 Hypertension Benign Afnp-C 373.12 Hordeolum Internum Office Visit 04/07/2013 1:00p Main Office Jesús Del Castillo 401.1 Hypertension Benign M.DNina 272.4 Hyperlipidemia Other Unspec 600.00 hypertrophy benign of prostate without urinary obstruction 782.9 Skin & Integumentary Tissue Other Symptoms V70.0 Examination General Medical Routine AT Health Care Facility V72.0 Examination Eyes & Vision V58.66 Long-Term Use Of Aspirin Office Visit 11/05/2012 5:00p Main Office Opal Morales.1 Hypertension Benign M.DNina 386.11 Vertigo Benign Paroxysmal Position Office Visit 08/24/2011 8:00a [facility] Jesús Joseph.1 Hypertension Artem Del Castillo Benign 272.4 Hyperlipidemia Other Unspec 600.00 hypertrophy benign of prostate without urinary obstruction 493.90 Asthma Unspec W/O Status Asthmaticus 782.9 Skin & Integumentary Tissue Other Symptoms V70.0 Examination General Medical Routine AT Health Care Facility V76.41 Screening Malignant Neoplasm Rectum V06.5 Tetanus Diphtheria (DT) Office Visit 05/22/2010 2:20p [facility] Jesús Holloway 401.9 Hypertension Shallriccardo, M.D. Unspec 272.4 Hyperlipidemia Other Unspec 600.00 hypertrophy benign of prostate without urinary obstruction 300.00 Anxiety State Unspec V70.0 Examination General Medical Routine AT Health Care Facility V76.41 Screening Malignant Neoplasm Rectum V04.81 Need For Prophylactic Vaccination & Inoculation/Influenza v04.81 Need For Prophylactic Vaccination & Inoculation/Influenza Office Visit 04/14/2010 10:45a [facility] Renate Mcmillan, 462 Pharyngitis Acute Afnp-C 372.00 Conjunctivitis Acute Unspec Office Visit 06/27/2009 3:40p [facility] Jesús Holloway 787.91 Diarrhea Artem Del Castillo Office Visit 02/21/2009 3:40p [facility] Jesús Holloway 786.50 Pain Chest Artem Del Castillo Unspec 300.00 Anxiety State Unspec Office Visit 11/12/2008 4:20p [facility] Jesús Holloway 401.1 Hypertension Shallriccardo, M.D. Benign 272.4 Hyperlipidemia Other Unspec 300.00 Anxiety State Unspec 600.00 hypertrophy benign of prostate without urinary obstruction Office Visit 06/17/2008 3:30p Main Office Jesús Del Castillo, 786.50 Pain Chest M.D. Unspec 401.1 Hypertension Benign 272.4 Hyperlipidemia Other Unspec 782.0 Skin Sensation Disturbance Office Visit 04/01/2008 10:20a Main Office Jesús Del Castillo, 401.1 Hypertension Benign M.D. 272.4 Hyperlipidemia Other Unspec Office Visit 12/05/2007 4:30p Main Office Jesús Del Castillo, 401.1 Hypertension Benign M.D. 272.4 Hyperlipidemia Other Unspec 785.1 Palpitations 300.00 Anxiety State Unspec V76.44 Screening For Malig Victorino Prostate V76.41 Screening Malignant Neoplasm Rectum Office Visit 04/24/2007 10:00a Main Office Jesús Del Castillo 401.1 Hypertension Benign M.D. 786.50 Pain Chest Unspec Office Visit 05/24/2006 2:15p Main Office Jesús Del Castillo, 401.1 Hypertension Benign M.D. 600.00 hypertrophy benign of prostate without urinary obstruction 786.50 Pain Chest Unspec Office Visit 01/11/2006 11:30a [facility] Office Renate Mcmillan, V77.0 Screening Afnp-C Thyroid Disorders 477.9 Rhinitis Allergic Cause Unspec Office Visit 08/31/2005 [facility] Renate Mcmillan, 782.1 Rash & Other Nonspec 4:00p Office Afnp-C Skin Eruption Office Visit 02/20/2005 [facility] Saqib Finch 796.2 Blood Pressure 3:10p Office Artem Gomez Reading Elevated W/O Hypertension Office Visit 10/11/2004 Main Office Coid posey 487.1 Influenza W/ Other 12:30p Artem Murillo Respiratory Manifestations Office Visit 07/09/2003 Main Office Jesús Holloway V70.0 Examination General 3:00p Artem Del Castillo Medical Routine AT Health Care Facility Office Visit 02/23/2002 Cleopatra Holloway 2:00p Office Artem Del Castillo Office Visit 12/20/2000 Cleopatra Holloway 10:10a Office Artem Del Castillo Office Visit 08/22/2000 Main Office Jesús Holloway 3:00p Artem Del Castillo Plan of Treatment Future Appointment(s):05/21/2019 8:00 am - Jesús Del Castillo M.D. at Main [id number]/24/2018 - Jesús Del Castillo M.D.I10 Essential (primary) hypertensionComments:The patient will continue to monitor blood pressure in the near future, and let me know the blood pressure results if there are readings [id number] Other asthmaComments:Continue p.r.n. use of CtwvgodykG80.49 Other hyperlipidemiaComments:continue present lthsmzkexsV39.00 Encounter for general adult medical examination without abnoNew Labs:Ict Hemoccult (Fma), Ordered: 10/24/18Follow up:Followup:. (Follow up)AllComments:Generally patient continues to do very well. Today complains of some episodic fatigue, and occasional periods of lack of coordination. Await lab work today. If this episodes of possible neurologic symptoms become progressive and would consider Neurology consultation. Consider sleep study if sleep apnea could be contributing to his episodes of fatigue. Await lab work. Patient has an appointment with Dr. Arreaga in the near future and will continue his dermatology followup with Dr. Orozco. Neurologic exam is normal today-there is some unsteadiness on tandem Romberg. Consider taper of his beta paloma to see if this could help improve his episodic fatigue. Blood pressure appears to be well- controlled. Patient has had flu vaccination. Advised Shingrix vaccine to prevent shingles. He will return forfollowup in 6 months
[2018-11-09] MEDS ORDERED: fentaNYL* 50 MCG/ML 2 ML VIAL (100 MCG VIAL) IV SLOW PU ONE (21:44)
[2018-11-09] MEDS ORDERED: Metoclopramide IV* 5 MG/ML 2 ML VIAL IV SLOW PU ONE (21:44)
--- NOTE | 2018-11-09 22:10 | ED ---
HPI Chest Pain - HPI Summary HPI Summary: The patient is a 58 year old male who is presenting to the [facility] with a chief complaint of chest wall pain s/p fall.. He is accompanied by his . The mechanism of the fall was described to be an incident during a hockey in which the patient tripped and fell forward on his chest. According to the patient, he did not "brace for impact" and the impact was directly on his chest. The symptoms are aggravated by movement. The symptoms are alleviated by nothing. The pain is rated to be 7/10 in severity. Patient denies reports of vomiting and coughing. Medications taken involved HTN medication and arrhythmia medication. He has received a heart cath in 2008 in order to see what was contributing to the arrhythmia. Other reports of pain stated to be in the shoulder blades as per triage report. - History of Current Complaint Chief Complaint: EDChestWallPain Time Seen by Provider: 11/09/18 21:39 Hx Obtained From: Patient, Family/Cuprous Chloride Helper Onset/Duration: Started Hours Ago Timing: Constant Initial Severity: Moderate Current Severity: Moderate Pain Intensity: 7 Pain Scale Used: 0-10 Numeric Chest Pain Radiates To:: Other Aggravating Factor(s): Movement Alleviating Factor(s): Nothing Associated Signs and Symptoms: Positive: Chest Pain, Other: - Shoulder pain - Allergy/Home Medications Allergies/Adverse Reactions: Allergies Allergy/AdvReac Type Severity Reaction Status Date / Time yellow fruits Allergy throat Uncoded 11/09/18 21:40 swells Home Medications: Home Medications Simvastatin 20 mg PO DAILY 11/09/18 [History Confirmed 11/09/18] PMH/Surg Hx/FS Hx/Imm Hx Endocrine/Hematology History: Denies: Hx Diabetes Cardiovascular History: Reports: Hx Hypertension, Other Cardiovascular Problems/ Disorders - irreg heat beat 7 yrs ago, heart cath, pvcs Denies: Hx Congestive Heart Failure, Hx Pacemaker/ICD Respiratory History: Reports: Hx Asthma - exertional only Denies: Other Respiratory Problems/Disorders GI History: Denies: Other GI Disorders History: Denies: Hx Dialysis, Hx Renal Disease Musculoskeletal History: Denies: Other Musculoskeletal History Sensory History: Reports: Hx Cataracts - left, Hx Contacts or Glasses - galsses and contacts Denies: Hx Hearing Aid Opthamlomology History: Reports: Hx Cataracts - left, Hx Contacts or Glasses - galsses and contacts Neurological History: Denies: Other Neuro Impairments/Disorders Psychiatric History: Reports: Hx Anxiety - no meds Denies: Hx Panic Disorder - Surgical History Surgery Procedure, Year, and Place: APPENDECTOMY Hx Anesthesia Reactions: No Infectious Disease History: No Infectious Disease History: Denies: Hx Clostridium Difficile, Hx Hepatitis, Hx Human Immunodeficiency Virus (HIV), Hx of Known/Suspected MRSA, Hx Shingles, Hx Tuberculosis, Hx Known/ Suspected VRE, Hx Known/Suspected VRSA, History Other Infectious Disease, Traveled Outside the [place] in Last 30 Days - Family History Known Family History: Positive: Non-Contributory - Social History Lives: With Family Alcohol Use: Daily Alcohol Amount: two glasses of red wine Substance Use Type: Reports: None Smoking Status (MU): Never Smoked Tobacco Have You Smoked in the Last Year: No Review of Systems Constitutional: Negative Eyes: Negative ENT: Negative Positive: Chest Pain - s/p fall Negative: Cough Negative: Vomiting Genitourinary: Negative Positive: other Musculoskeletal: Other - Pain at shoulder blades Skin: Negative Neurological: Negative Psychological: Normal All Other Systems Reviewed And Are Negative: Yes Physical Exam - Summary Physical Exam Summary: VITAL SIGNS: Reviewed. GENERAL: Patient is a well-developed and nourished (MALE) who is lying comfortable in the stretcher. Patient is not in any acute respiratory distress. HEAD AND FACE: No signs of trauma. No ecchymosis, hematomas or skull depressions. No sinus tenderness. EYES: PERRLA, EOMI x 2, No injected conjunctiva, no nystagmus. EARS: Hearing grossly intact. Ear canals and tympanic membranes are within normal limits. MOUTH: Oropharynx within normal limits. NECK: Supple, trachea is midline, no adenopathy, no JVD, no carotid bruit, no c- spine tenderness, neck with full ROM. CHEST: Pain when patient moves, Right lower chest wall tenderness LUNGS: Clear to auscultation bilaterally. No wheezing or crackles. CVS: Regular rate and rhythm, S1 and S2 present, no murmurs or gallops appreciated. ABDOMEN: Soft, non-tender. No signs of distention. No rebound no guarding, and no masses palpated. Bowel sounds are normal. EXTREMITIES: FROM in all major joints, no edema, no cyanosis or clubbing. NEURO: Alert and oriented x 3. No acute neurological deficits. Speech is normal and follows commands. SKIN: Dry and warm Triage Information Reviewed: Yes Vital Signs On Initial Exam: Initial Vitals Temp Pulse Resp BP Pulse Ox 97.6 F 58 16 157/92 96 11/09/18 21:28 11/09/18 21:28 11/09/18 21:28 11/09/18 21:28 11/09/18 21:28 Vital Signs Reviewed: Yes Diagnostics - Vital Signs Vital Signs Temp Pulse Resp BP Pulse Ox 11/09/18 21:28 97.6 F 58 16 157/92 96 - Laboratory Result Diagrams: 11/09/18 22:04 11/09/18 22:04 Lab Statement: Any lab studies that have been ordered have been reviewed, and results considered in the medical decision making process. - CT CT Chest CT Interpretation Completed By: Radiologist Summary of CT Findings: CT Chest reveals 1. No fracture. 2. Left thyroid lesion. 3. Minimal coronary artery calcifications. As per radiologist report. The ED Physician has reviewed this radiology report. CT Abd/Pelvis CT Interpretation Completed By: Radiologist Summary of CT Findings: CT Abd/pelvis reveals Appendectomy. Prostatic calcification. Vasectomy. As per radiologist report. The ED Physician has reviewed this radiology report. Chest Pain Course/Dx - Course Course Of Treatment: The patient is a 58 year old male who is presenting to the [facility] with a chief complaint of a chest wall pain upon falling down during a hockey game. The patient received a chest/abd/pel CT in the [facility] along with pain medication. We reviewed the radiology report and found unremarkable findings. The patient will be discharged home with a dx of contusion. We recommend a follow up with the patients primary care physician. - Diagnoses Provider Diagnoses: Contusion Discharge - Sign-Out/Discharge Documenting (check all that apply): Patient Departure - Discharge Home Patient Received Moderate/Deep Sedation with Procedure: No - Discharge Plan Condition: Stable Disposition: HOME Patient Education Materials: Contusion in Adults (ED) Referrals: Jesús Del Castillo MD [Primary Care Provider] - Additional Instructions: RETURN TO THE EMERGENCY DEPARTMENT FOR CHANGING OR WORSENING SYMPTOMS. FOLLOW UP WITH PCP IN 1-2 DAYS. - Billing Disposition and Condition Condition: STABLE Disposition: Home - Attestation Statements Document Initiated by Scribe: Yes Documenting Scribe: Hesham Padgett Provider For Whom Scribe is Documenting (Include Credential): Dr. Mervin Cárdenas Scribe Attestation: I, Hesham Padgett, scribed for Dr. Mervin Cárdenas on 11/10/18 at 0533. Scribe Documentation Reviewed: Yes Provider Attestation: The documentation as recorded by the Hesham humphries accurately reflects the service I personally performed and the decisions made by me, Dr. Mervin Cárdenas Status of Scribe Document: Viewed
[2018-11-09 22:13] LABS: ABS Basophils 0 10^3/ul (0-0.2); ABS Eosinophils 0.1 10^3/ul (0-0.6); ABS Lymphocytes 0.9 10^3/ul (1.0-4.8); ABS Monocytes 0.5 10^3/ul (0-0.8); ABS Neutrophils 3.7 10^3/ul (1.5-7.7); ABS Nucleated RBC 0 10^3/ul; Eosinophil % 2.1 %; Hematocrit 44 % (42-52); Hemoglobin 15.4 g/dl (14.0-18.0); Lymphocyte % 17.4 %; Mean Corpuscular HGB Conc 35 g/dl (31-36); Mean Corpuscular Hemoglobin 37 pg (27-31); Mean Corpuscular Volume 104 fL (80-94); Nucleated Red Blood Cells % 0; Platelet Count 151 10^3/ul (150-450); Red Blood Count 4.23 10^6/ul (4.00-5.40); Red Cell Distribution Width 14 % (10.5-15); White Blood Count 5.2 10^3/ul (3.5-10.8)
[2018-11-09 22:29] LABS: Activated Partial Thrombo Time 27.1 seconds (26.0-36.3); Albumin 4.5 g/dL (3.2-5.2); Albumin/Globulin Ratio 1.9 (1-3); BUN/Creatinine Ratio 15.8 (8-20); Calcium 9.8 mg/dL (8.6-10.3); EGFR African American 91.8 (>60); EGFR Non-African American 75.9 (>60); Globulin 2.4 g/dL (2-4); INR 0.9 (0.77-1.02); Total Bilirubin 0.6 mg/dL (0.2-1.0); Total Protein 6.9 g/dL (6.4-8.9)
[2018-11-09 22:34] LABS: Potassium 4.4 mmol/L (3.5-5.0)
[2018-11-09] MEDS ORDERED: Acetaminophen TAB* 325 MG PO ONE (22:54)
[2018-11-09] MEDS ORDERED: Iohexol 300* (CONTRAST) 10 ML SDV IV ONE (22:58)
[2018-11-10 00:39] VITALS: BP 144/69
== END 2018-11-10 00:39 | disposition home or self-care (01) ==
LOC: ED 21:27
DX: S20.219A Contusion of unspecified front wall of thorax, initial encounter (principal); W19.XXXA Unspecified fall, initial encounter; Y93.22 Activity, ice hockey; Y92.39 Other specified sports and athletic area as the place of occurrence of the external cause; I25.10 Atherosclerotic heart disease of native coronary artery without angina pectoris; I10 Essential (primary) hypertension; E07.9 Disorder of thyroid, unspecified; N40.2 Nodular prostate without lower urinary tract symptoms; Z91.018 Allergy to other foods
CPT/HCPCS: 36415; 71260; 74177; 80053; 82150; 82550; 83690; 85025; 85610; 85730; 86850; 86900; 86901; 99282; A9270-GY; J2765; J3010; Q9967

== ENCOUNTER 2023-05-31 19:49 | Inpatient (IN) ==
[2023-05-31 20:14] LABS: ABS Lymphocytes 1.5 10^3/uL (1.0-4.8); ABS Monocytes 0.7 10^3/uL (0.0-1.1); ABS Neutrophils 8.6 10^3/uL (1.5-7.6); ABS Nucleated RBC 0.01 10^3/ul; Eosinophil % 0.1 %; Hematocrit 42.8 % (38-53); Hemoglobin 15.2 g/dL (13.2-16.3); Mean Corpuscular Hgb Conc 35.5 g/dL (31-36); Mean Corpuscular Volume 104.2 fL (80-97); Mean Platelet Volume 8.4 fL (7.5-11.2); Nucleated Red Blood Cells % 0.1 /100 WBC (0.0-0.4); Platelet Count 210 10^3/uL (150-450); Red Blood Count 4.11 10^6/uL (4.06-5.63); Red Cell Distribution Width 13.6 % (12-17); White Blood Count 10.8 10^3/uL (3.6-10.2)
[2023-05-31 20:25] LABS: Albumin 4.5 g/dL (3.2-5.2); CO2 Carbon Dioxide 25 mmol/L (22-32); Calcium 10.1 mg/dL (8.6-10.3); Chloride 107 mmol/L (101-111); Sodium 138 mmol/L (135-145)
[2023-05-31] MEDS ORDERED: NS 0.9% 1000 ml BAG 1,000 ML IV ONE (20:29)
[2023-05-31 20:31] LABS: ALT 21 U/L (7-52); Albumin/Globulin Ratio 1.6 (1-3); Alkaline Phosphatase 59 U/L (35-149); Blood Urea Nitrogen 25 mg/dL (6-24); Creatinine, Serum 0.95 mg/dL (0.67-1.17); Globulin 2.9 g/dL (2-4); Glucose 141 mg/dL (70-100); Total Protein 7.4 g/dL (6.4-8.9); eGFR CKD-EPI 90.5 (>60)
[2023-05-31 20:34] LABS: High Sens Troponin Baseline 12 pg/mL (<20)
[2023-05-31 20:43] LABS: Anion Gap 6 mmol/L (2-16)
[2023-05-31 21:42] LABS: Potassium Redraw 4.2 mmol/L (3.5-5.0)
[2023-05-31 22:12] LABS: TSH Ultra Thyroid Stim Horm 0.75 mcIU/mL (0.34-5.60)
[2023-06-01 04:58] LABS: Calcium 9.6 mg/dL (8.6-10.3); Creatinine, Serum 0.83 mg/dL (0.67-1.17); Magnesium 1.9 mg/dL (1.9-2.7)
[2023-06-01 05:03] LABS: ABS Basophils 0.1 10^3/uL (0.0-0.1); ABS Monocytes 0.7 10^3/uL (0.0-1.1); ABS Neutrophils 5.3 10^3/uL (1.5-7.6); ABS Nucleated RBC 0.13 10^3/ul; Eosinophil % 0.3 %; Hematocrit 41.8 % (38-53); Hemoglobin 14.7 g/dL (13.2-16.3); Lymphocyte % 24.6 %; Mean Corpuscular Hemoglobin 36.7 pg (27-33); Mean Corpuscular Hgb Conc 35.2 g/dL (31-36); Mean Corpuscular Volume 104.5 fL (80-97); Mean Platelet Volume 8.4 fL (7.5-11.2); Nucleated Red Blood Cells % 1.7 /100 WBC (0.0-0.4); Platelet Count 175 10^3/uL (150-450)
[2023-06-01 14:09] VITALS: BP 146/85
== END 2023-06-01 14:07 | disposition home or self-care (01) | DRG 201 ==
LOC: ED 19:49 → SUATTDRO 22:27 → EDHOLD 22:27
PROVIDERS: ADMIT Internal Medicine; ATTEND Internal Medicine